=== PATIENT | female | born 1955 | race Caucasian/White ===

== ENCOUNTER 2018-04-30 14:02 | Emergency (ER) | payer OTHER ==
--- NOTE | 2018-04-30 14:18 | ED Physician Documentation ---
PD HPI UPPER EXT INJURY - Stated complaint Stated Complaint: LEFT HAND INJ - Chief complaint Chief Complaint: Ext Problem - History obtained from History obtained from: Patient - History of Present Illness Location: Left (Right-handed woman with up-to-date tetanus status tripped and fell on outstretched left hand and has some scrapes and gravel in the left palm and pain in the proximal hand and distal wrist. No other injuries.) Review of Systems Constitutional: reports: Reviewed and negative Throat: reports: Reviewed and negative Cardiac: reports: Reviewed and negative PD PAST MEDICAL HISTORY - Past Medical History Past Medical History: Yes Respiratory: Asthma - Past Surgical History Past Surgical History: No - Present Medications Home Medications: Ambulatory Orders Medication Instructions Recorded Confirmed Albuterol Sulf [Ventolin Hfa 04/30/18 Inhaler] Fluticasone/Vilanterol [Breo 04/30/18 Ellipta 200-25 Mcg INH] - Allergies Allergies/Adverse Reactions: Allergies Allergy/AdvReac Type Severity Reaction Status Date / Time No Known Drug Allergies Allergy Verified 04/30/18 14:05 - Social History Does the pt smoke?: No Smoking Status: Never smoker - Immunizations Immunizations are current?: Yes PD ED PE NORMAL - Vitals Vital signs reviewed: Yes - General General: Alert and oriented X 3, No acute distress - Neck Neck: Supple, no meningeal sign, No bony TTP - Extremities Extremities: Other (Left upper extremity: She is tender over the distal dorsal wrist without deformity, and also mild tenderness of the proximal thumb but not the snuffbox per se. She has a shallow abrasion over the thenar palmar side with a little bit of embedded gravel which was debrided with tweezers during exam I think I got it all out. Good range of motion of the fingers and wrist.) - Neuro Neuro: Alert and oriented X 3, Normal speech Results - Vitals Vitals: Vital Signs - 24 hr 04/30/18 14:03 Temperature 36.3 C L Heart Rate 65 Respiratory 20 Rate Blood Pressure 149/106 H O2 Saturation 99 Oxygen O2 Source Room air - Rads (name of study) X-rays of the left wrist and hand Radiology: EMP read contemporaneously (Normal) PD MEDICAL DECISION MAKING - Sepsis Event Vital Signs: Vital Signs - 24 hr 04/30/18 14:03 Temperature 36.3 C L Heart Rate 65 Respiratory 20 Rate Blood Pressure 149/106 H O2 Saturation 99 Oxygen O2 Source Room air Departure - Departure Disposition: 01 Home, Self Care Clinical Impression: Contusion of left hand Qualifiers: Encounter type: initial encounter Qualified Code(s): S60.222A - Contusion of left hand, initial encounter Left wrist sprain Qualifiers: Encounter type: initial encounter Qualified Code(s): S63.502A - Unspecified sprain of left wrist, initial encounter Abrasion of left hand Qualifiers: Encounter type: initial encounter Qualified Code(s): S60.512A - Abrasion of left hand, initial encounter Condition: Good Instructions: ED Abrasion, ED Sprain Wrist Comments: Your blood pressure was elevated today on check into the emergency department. This does not mean that you have hypertension, it is a common phenomenon to come to the emergency department and have elevated blood pressure. I recommend that you see your primary care physician within the week to have it rechecked when you are feeling better.
--- NOTE | 2018-04-30 14:53 | XRAY Report ---
Procedure Date: 04/30/2018 Accession Number: [id number] / [id number] Procedure: XR - Wrist 4 View LT CPT Code: FULL RESULT: EXAM: LEFT WRIST RADIOGRAPHY EXAM DATE: 04/30/2018 02:32 PM. CLINICAL HISTORY: Left wrist injury. COMPARISON: None. TECHNIQUE: 4 views. FINDINGS: Bones: Normal. No fractures or bone lesions. Joints: Normal. No subluxations. Soft Tissues: Normal. No soft tissue swelling. IMPRESSION: Normal wrist radiography. RADIA
--- NOTE | 2018-04-30 14:54 | XRAY Report ---
Procedure Date: 04/30/2018 Accession Number: [id number] / [id number] Procedure: XR - Hand 3 View LT CPT Code: FULL RESULT: EXAM: LEFT HAND RADIOGRAPHY EXAM DATE: 04/30/2018 02:32 PM. CLINICAL HISTORY: Left hand injury. COMPARISON: None. TECHNIQUE: 3 views. FINDINGS: Bones: Normal. No fractures or bone lesions. Joints: Normal. No subluxations. Soft Tissues: Normal. No soft tissue swelling. IMPRESSION: Normal hand radiography. RADIA
[2018-04-30 15:02] VITALS: BP 116/65
== END 2018-04-30 15:01 | disposition home or self-care (01) ==
LOC: ED 14:02
DX: S60.222A Contusion of left hand, initial encounter (principal); S63.502A Unspecified sprain of left wrist, initial encounter; S60.512A Abrasion of left hand, initial encounter; W01.0XXA Fall on same level from slipping, tripping and stumbling without subsequent striking against object, initial encounter; R03.0 Elevated blood-pressure reading, without diagnosis of hypertension
CPT/HCPCS: 99283

== ENCOUNTER 2018-09-01 14:27 | Outpatient (CLI) | payer OTHER ==
--- NOTE | 2018-09-02 08:43 | DEXA Report ---
Reason: INCREASED ABEL OF OSTEOPOROSIS,ABN FINDINGS ON DX Procedure Date: 09/01/2018 Accession Number: [id number] / [id number] Procedure: DEX - Dexa Spine and/or Hip CPT Code: FULL RESULT: EXAM: Dexa Spine and/or Hip DATE: 09/01/2018 2:57 PM CLINICAL HISTORY: INCREASED ABEL OF OSTEOPOROSIS,ABN FINDINGS ON DX TECHNIQUE: Dual energy x-ray absorptiometry (DXA) was performed on a Blue Source System. Regions measured are the AP Spine, femoral neck, and if needed forearm. COMPARISON: None. In accordance with the International Society for Clinical Densitometry (ISCD) guidelines, data from previous exams may be reanalyzed using current recommendations and techniques. This is done to allow a more accurate basis for comparison with the current study. FINDINGS: The data for the lumbar spine is as follows: BMD (g/cm/cm) T-SCORE Z-SCORE REGION L1 0.876 -2.1 -0.2 L2 0.961 -2.0 -0.1 L3 0.943 -2.1 -0.2 L4 0.908 -2.4 -0.5 TOTAL 0.922 -2.2 -0.3 NOTE: All evaluable vertebrae are used for classification The data for the hip is as follows: BMD (g/cm/cm) T-SCORE Z-SCORE REGION Neck 0.906 -1.0 0.7 TOTAL 0.873 -1.1 0.3 NOTE: The femoral neck or total proximal femur, whichever is lowest, is used for classification. IMPRESSION: THE WHO CLASSIFICATION BASED ON THE INTERNATIONAL REFERENCE STANDARD IS OSTEOPENIA. THE FRACTURE RISK IS INCREASED. RECOMMENDATION: Patients with diagnosis of osteoporosis or osteopenia should have regular bone mineral density assessment. For those eligible for Medicare, routine testing is allowed once every 2 years. Testing frequency can be increased for patients who have rapidly progressing disease or for those who are receiving medical therapy to restore bone mass. COMMENT: World Health Organization (WHO) definitions for osteoporosis and osteopenia: NORMAL BMD: T-score at -1.0 or higher, fracture risk is low OSTEOPENIA BMD: T-score between -1.0 and -2.5, fracture risk is increased. OSTEOPOROSIS BMD: T-score at -2.5 or lower, fracture risk is high. National Osteoporosis Foundation recommends: 1. Obtain adequate dietary calcium (at least 1200 mg per day) and vitamin D (400-800 international units per day). 2. Participate, as appropriate, in regular weightbearing and muscle-strengthening exercise. 3. Avoid tobacco use and reduce alcohol and caffeine intake. 4. For more detailed information see the website at www.NOF.org.
--- NOTE | 2018-09-02 13:32 | Ultrasound Report ---
Reason: INCREASED ABEL OF OSTEOPOROSIS,ABN FINDINGS ON DX Procedure Date: 09/01/2018 Accession Number: [id number] / [id number] Procedure: US - Head or Neck Soft Tissue CPT Code: FULL RESULT: EXAM: THYROID ULTRASOUND EXAM DATE: 09/01/2018 03:30 PM. CLINICAL HISTORY: Thyroid nodules. COMPARISON: None. TECHNIQUE: Real time sonographic imaging of the thyroid was performed by the manager card. Multiple tax representative static images were saved for review. FINDINGS: THYROID GLAND: Right Lobe: 4.9 x 1.6 x 1.9 cm, volume 7.5 cc. Markedly heterogeneous background echotexture with notably increased vascularity on color Doppler. Right Lobe Nodules: Heterogeneous 0.9 x 0.6 x 0.7 cm nodule. Left Lobe: 0.9 x 0.5 x 0.5 cm, volume 0.4 cc. The small thyroid remnant demonstrates the same heterogeneous echotexture and increased vascularity on color Doppler as the right thyroid lobe. Left Lobe Nodules: None. Isthmus: 0.1 cm AP. Isthmic Nodules: None. LYMPH NODES: No adenopathy demonstrated in the central or lateral compartment. OTHER: None. IMPRESSION: Increased heterogeneity and increased vascularity in the remaining thyroid gland, finding suggestive of thyroiditis. Management recommendations are based on 2015 [place] [employer] Management Guidelines for Adult Patients with Thyroid Nodules and Differentiated Thyroid Cancer. RADIA
== END 2018-09-01 14:28 | disposition home or self-care (01) ==
LOC: DI 14:27
PROVIDERS: ATTEND Naturopath
DX: M85.89 Other specified disorders of bone density and structure, multiple sites (principal); E04.2 Nontoxic multinodular goiter; R93.5 Abnormal findings on diagnostic imaging of other abdominal regions, including retroperitoneum; R63.6 Underweight
CPT/HCPCS: 76536; 77080

== ENCOUNTER 2018-10-05 07:54 | Outpatient (CLI) | payer OTHER ==
[2018-10-05] MEDS ORDERED: IOVERSOL 320 100 ML VIAL IVP ONE ×3 (08:09→09:44)
[2018-10-05 08:25] LABS: CALCIUM 9.1 mg/dL (8.5-10.3); CREATININE 0.7 mg/dL (0.4-1.0)
--- NOTE | 2018-10-05 17:46 | CT Report ---
Reason: ABN FINDINGS ON DX IMAGING OF [facility] Procedure Date: 10/05/2018 Accession Number: [id number] / [id number] Procedure: CT - Abdomen W/ CPT Code: FULL RESULT: EXAM: CT ABDOMEN, MULTIPHASE PANCREATIC CT EXAM DATE: 10/05/2018 09:21 AM. CLINICAL HISTORY: Abnormal findings on diagnostic imaging of abdomen regions. Follow rim calcified lesion in the pancreatic tail. COMPARISON: Report from chest CT of 06/22/2016 from [facility]. TECHNIQUE: Multiphase helical CT imaging was performed through the abdomen. IV contrast: OPTI 320 90mL Enteric contrast: No. Reconstruction: Coronal and sagittal. In accordance with CT protocol optimization, one or more of the following dose reduction techniques were utilized for this exam: automated exposure control, adjustment of mA and/or KV based on patient size, or use of iterative reconstructive technique. FINDINGS: Lung Bases: Unremarkable. Liver: Arterial phase image 84 series 3, posterior right liver is small. Hypervascular focus is likely a early filling hemangioma or perfusion abnormality of doubtful clinical significance. There is a small left liver cyst. No definitely suspicious masses. Gallbladder/Bile Ducts: Unremarkable. Spleen: Normal. Pancreas: No pancreatic solid mass or ductal dilatation seen. Previously described rim calcified lesion in the pancreatic tail corresponds to a thrombosed 11 mm splenic artery aneurysm. Image 44 series 3, 6 x 4 mm hypodense focus in the pancreatic tail could be a tiny cyst. Adrenal Glands: Normal. Kidneys: Normal. No masses or hydronephrosis. Peritoneal Cavity/Bowel: Normal. No free fluid, free air or adenopathy. No masses or acute inflammatory process. The appendix is well visualized and normal. 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 There is an additional patent 13 x 12 mm splenic artery aneurysm, image 33 series 3. No other aneurysm seen. Vessels otherwise unremarkable. Bones: No significant abnormality. Other: None. IMPRESSION: 1. 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 There is an additional 13 mm patent splenic artery aneurysm as well. 2. Pancreatic tail 6 x 4 mm cystic focus is distally but benign. ACR recommends one-year follow-up pancreatic MRI of such a lesion. RADIA
== END 2018-10-05 07:55 | disposition home or self-care (01) ==
LOC: DI 07:54
PROVIDERS: ATTEND Naturopath
DX: I72.8 Aneurysm of other specified arteries (principal); I74.8 Embolism and thrombosis of other arteries; K86.2 Cyst of pancreas; R93.5 Abnormal findings on diagnostic imaging of other abdominal regions, including retroperitoneum; Z01.812 Encounter for preprocedural laboratory examination
CPT/HCPCS: 36415; 74160; 80048; Q9967

== ENCOUNTER 2018-10-26 14:49 | Outpatient (CLI) | payer OTHER ==
[2018-10-26 15:31] LABS: CALCIUM 9.5 mg/dL (8.5-10.3); CREATININE 0.8 mg/dL (0.4-1.0)
[2018-10-27 17:02] LABS: THYROID STIMULATING HORMONE 1.33 uIU/mL (0.34-5.60)
[2018-10-27 17:07] LABS: FREE T4 (FREE THYROXINE) 1.08 ng/dL (0.58-1.64); TOTAL T3 0.87 ng/mL (0.87-1.78)
== END 2018-10-26 14:50 | disposition home or self-care (01) ==
LOC: LAB 14:49
PROVIDERS: ATTEND Naturopath
DX: Z01.812 Encounter for preprocedural laboratory examination (principal)
CPT/HCPCS: 36415; 80048; 84439; 84443; 84480; 84481

== ENCOUNTER 2019-02-23 13:12 | Outpatient (CLI) | payer OTHER ==
[2019-02-23 15:06] LABS: T4 (THYROXINE) 9.74 ug/dL (6.09-12.23)
[2019-02-23 15:09] LABS: THYROID STIMULATING HORMONE 0.14 uIU/mL (0.34-5.60)
[2019-02-23 15:11] LABS: FREE T4 (FREE THYROXINE) 1.06 ng/dL (0.58-1.64)
[2019-02-23 15:16] LABS: TOTAL T3 1.17 ng/mL (0.87-1.78)
== END 2019-02-23 13:13 | disposition home or self-care (01) ==
LOC: LAB 13:12
PROVIDERS: ATTEND Naturopath
DX: E03.9 Hypothyroidism, unspecified (principal); R63.4 Abnormal weight loss
CPT/HCPCS: 36415; 84436; 84439; 84443; 84480; 84481; 84482

== ENCOUNTER 2019-07-15 18:51 | Emergency (ER) | payer OTHER ==
--- NOTE | 2019-07-15 19:36 | XRAY Report ---
Reason: chest pain Procedure Date: 07/15/2019 Accession Number: [id number] / [id number] Procedure: XR - Chest 1 View X-Ray CPT Code: 58060 FULL RESULT: EXAM: CHEST RADIOGRAPHY EXAM DATE: 07/15/2019 07:27 PM. CLINICAL HISTORY: Chest pain. COMPARISON: None. TECHNIQUE: 1 view. FINDINGS: Lungs/Pleura: Mild biapical scarring. Central bronchial wall thickening is noted. No superimposed focal airspace consolidation. Rounded densities projecting at the lower lungs likely reflect nipple shadows. No evidence of pleural effusion or pneumothorax. Mediastinum: Within exam limitations, the cardiomediastinal contour is normal. Other: Right convex thoracic scoliosis noted. IMPRESSION: 1. Central bronchial wall thickening could reflect reactive airways or bronchitis. No evidence for pneumonia. 2. Normal heart size. RADIA
[2019-07-15 19:40] LABS: BASOPHILS % (AUTO) 0.6 %; EOSINOPHILS # (AUTO) 0.4 10^3/uL (0.0-0.7); HGB - HEMOGLOBIN 13.1 g/dL (12.0-16.0); LYMPHOCYTES # (AUTO) 1.7 10^3/uL (1.5-3.5); LYMPHOCYTES % (AUTO) 26.9 %; MEAN CORPUSCULAR HEMOGLOBIN 28.2 pg (27.0-31.0); MEAN CORPUSCULAR HGB CONC 32.4 g/dL (32.0-36.0); MEAN CORPUSCULAR VOLUME 86.9 fL (81.0-99.0); MEAN PLATELET VOLUME 10.1 fL (7.9-10.8); MONOCYTES # (AUTO) 0.5 10^3/uL (0.0-1.0); MONOCYTES % (AUTO) 7.5 %; NEUTROPHILS # (AUTO) 3.6 10^3/uL (1.5-6.6); NEUTROPHILS % (AUTO) 57.7 %; PLT - PLATELET COUNT 210 10^3/uL (130-450); RED BLOOD COUNT 4.65 10^6/uL (4.20-5.40); WHITE BLOOD COUNT 6.2 x10^3/uL (4.8-10.8)
--- NOTE | 2019-07-15 19:42 | ED Physician Documentation ---
PD HPI CHEST PAIN - Stated complaint Stated Complaint: CP - Chief complaint Chief Complaint: Cardiac - History obtained from History obtained from: Patient - History of Present Illness Timing - onset: Today (20 minutes prior to arrival) Timing - duration: Minutes (20) Timing - details: Abrupt onset Pain level now: 0 Quality: Pressure, Tightness Location: Substernal, Right shoulder/arm Improved by: Rest Recently seen: Not recently seen - Additional information Additional information: This is a 63-year-old woman is here with her complaints that she had chest pain while she was making dinner. She said it just suddenly felt like someone was standing on her chest she got short of breath and the pain was radiating into the right shoulder and she described as "intense". Lasted for maybe 20 minutes and then they got in the car to drive here she was, "out of it" and now the pain is completely gone at a 0 out of 10. She felt like her heart was racing racing when this happened she felt warm and flushed. She got a little dizzy and was nauseous felt, clammy no vomiting. She had a similar episode happened a few years ago and was seen at the [facility] they did a lot of tests and everything came out normal and she is had a negative cardiac stress test for 5 years ago. She denies any recent coughing, she had no numbness or tingling anywhere. Denies sore throat stuffy nose urinary symptoms or fever. She is not a smoker. She drinks a glass of wine or beer daily. She does have asthma but said that the shortness of breath did not feel like an asthma attack. Her mother is alive and has hypercholesterolemia and her father of cancer. She status post partial thyroidectomy due to a cyst and is on thyroid medications. Review of Systems Constitutional: denies: Fever Eyes: denies: Loss of vision Ears: denies: Ear pain Nose: denies: Rhinorrhea / runny nose, Congestion Throat: denies: Sore throat Cardiac: reports: Chest pain / pressure, Palpitations Respiratory: reports: Dyspnea. denies: Cough GI: reports: Nausea, Diarrhea (2 days ago). denies: Vomiting : reports: Dysuria Skin: reports: Rash Musculoskeletal: denies: Neck pain, Back pain Neurologic: denies: Focal weakness, Numbness, Syncope Endocrine: reports: Other (Partial thyroidectomy) PD PAST MEDICAL HISTORY - Past Medical History Cardiovascular: None Respiratory: Asthma Endocrine/Autoimmune: HyPOthyroidism - Past Surgical History Past Surgical History: No - Present Medications Home Medications: Ambulatory Orders Medication Instructions Recorded Confirmed Albuterol Sulf [Ventolin Hfa 04/30/18 Inhaler] Fluticasone/Vilanterol [Breo 04/30/18 Ellipta 200-25 Mcg INH] - Allergies Allergies/Adverse Reactions: Allergies Allergy/AdvReac Type Severity Reaction Status Date / Time No Known Drug Allergies Allergy Verified 07/15/19 19:00 - Social History Does the pt smoke?: No Smoking Status: Never smoker - Immunizations Immunizations are current?: Yes PD ED PE NORMAL - Vitals Vital signs reviewed: Yes - General General: Alert and oriented X 3, No acute distress, Well developed/nourished, Other (Thin 63-year-old woman who is not in any acute distress. She is very pleasant.) - HEENT HEENT: Atraumatic, PERRL, Moist mucous membranes, Pharynx benign - Neck Neck: No adenopathy, No JVD - Cardiac Cardiac: RRR, No murmur, Strong equal pulses - Respiratory Respiratory: No respiratory distress, Clear bilaterally - Abdomen Abdomen: Normal bowel sounds, Soft, No organomegaly - Derm Derm: Normal color, No rash - Neuro Neuro: Alert and oriented X 3, No motor deficit, No sensory deficit, Normal speech - Psych Psych: Normal mood, Normal affect Results - Vitals Vitals: Vital Signs - 24 hr 07/15/19 07/15/19 07/15/19 19:00 19:20 19:42 Temperature 36.8 C 36.8 C Heart Rate 77 77 69 Respiratory 18 18 12 Rate Blood Pressure 145/88 H 145/88 H 130/84 H O2 Saturation 100 100 99 07/15/19 07/15/19 07/15/19 20:30 21:00 21:30 Temperature 36.8 C Heart Rate 70 66 64 Respiratory 12 18 10 L Rate Blood Pressure 135/87 H 143/82 H 124/78 O2 Saturation 100 100 99 07/15/19 07/15/19 07/15/19 22:00 22:30 23:00 Temperature Heart Rate 65 63 62 Respiratory 14 12 10 L Rate Blood Pressure 124/78 122/81 H 119/76 O2 Saturation 98 96 98 Oxygen O2 Source Room air - EKG (time done) 1856 Rate: Rate (enter#) (73) Rhythm: NSR Intervals: Normal RI, Other (Narrow QRS) Ischemia: ST depression (V4 and V5), Hyperacute T waves (V3 and V4.) Compare to prior EKG: Old EKG unavailable 2248 Rate: Rate (enter#) (61) Rhythm: NSR Intervals: Other (Narrow QRS) Ischemia: Normal ST segments - Labs Labs: Laboratory Tests 07/15/19 07/15/19 07/15/19 19:35 19:35 19:35 WBC 6.2 RBC 4.65 Hgb 13.1 Hct 40.4 MCV 86.9 MCH 28.2 MCHC 32.4 RDW 13.0 Plt Count 210 MPV 10.1 Neut # (Auto) 3.6 Lymph # (Auto) 1.7 Camp # (Auto) 0.5 Eos # (Auto) 0.4 Baso # (Auto) 0.0 Absolute Nucleated RBC 0.00 Nucleated RBC % 0.0 Sodium 140 Potassium 3.2 L Chloride 103 Carbon Dioxide 28 Anion Gap 9.0 BUN 19 Creatinine 0.6 Estimated GFR (MDRD) 101 Glucose 105 H Calcium 9.1 Total Bilirubin 0.7 AST 21 ALT 24 Alkaline Phosphatase 33 L Troponin I High Sens < 2.3 L Total Protein 6.8 Albumin 4.1 Globulin 2.7 Albumin/Globulin Ratio 1.5 Lipase 50 07/15/19 22:45 WBC RBC Hgb Hct MCV MCH MCHC RDW Plt Count MPV Neut # (Auto) Lymph # (Auto) Camp # (Auto) Eos # (Auto) Baso # (Auto) Absolute Nucleated RBC Nucleated RBC % Sodium Potassium Chloride Carbon Dioxide Anion Gap BUN Creatinine Estimated GFR (MDRD) Glucose Calcium Total Bilirubin AST ALT Alkaline Phosphatase Troponin I High Sens 2.4 Total Protein Albumin Globulin Albumin/Globulin Ratio Lipase - Rads (name of study) CXR Radiology: See rad report (No acute infiltrate. No pneumothorax.) PD MEDICAL DECISION MAKING - ED course Complexity details: reviewed results, re-evaluated patient, d/w patient, d/w family ED course: Patient's initial troponin is normal. EKG has some minor changes on it but there is no old EKG available for comparison.Chest x-ray is clear. Awaiting 3- hour troponin. Her potassium was slightly low and she was given oral potassium. The repeat troponin was normal and EKG normal. Results were discussed with the patient I feel comfortable letting her go home tonight with outpatient follow-up and she states understanding. I did caution that should she develop the pain and it lasts longer than 15 minutes she should return for reevaluation and she states understanding. Departure - Departure Disposition: Home, Self Care Clinical Impression: Atypical chest pain Condition: Good Instructions: ED Chest Pain Atypical Unkn Cause Follow-Up: Nicole Schofield [place] [Primary Care Provider] - Comments: Home tonight and rest. Avoid fatty or fried foods or really spicy foods. If your symptoms recur and last longer than 15 minutes she should return for reevaluation. Follow-up with your primary care provider to discuss whether or not you should have outpatient stress testing performed.
[2019-07-15 19:57] LABS: ALBUMIN 4.1 g/dL (3.2-5.5); ALBUMIN/GLOBULIN RATIO 1.5 (1.0-2.2); BILIRUBIN,TOTAL 0.7 mg/dL (0.2-1.0); CALCIUM 9.1 mg/dL (8.5-10.3); CREATININE 0.6 mg/dL (0.4-1.0); TOTAL PROTEIN 6.8 g/dL (6.7-8.2)
[2019-07-15] MEDS ORDERED: ASPIRIN CHEW 81 MG TABLET PO STA (19:58)
[2019-07-15] MEDS ORDERED: POTASSIUM CHLORIDE 20 MEQ TABLET PO STA (20:51)
[2019-07-15 23:10] VITALS: BP 119/76
== END 2019-07-15 23:33 | disposition home or self-care (01) ==
LOC: ED 18:51
DX: R07.89 Other chest pain (principal); E87.6 Hypokalemia; R94.31 Abnormal electrocardiogram [ECG] [EKG]
CPT/HCPCS: 36415; 71045; 80053; 83690; 84484; 85025; 93005; 99284; A9270

== ENCOUNTER 2019-08-10 08:43 | Outpatient (CLI) | payer OTHER ==
[2019-08-10 09:13] LABS: BILIRUBIN,URINE NEGATIVE (NEGATIVE); GLUCOSE, URINE (UA) NEGATIVE (NEGATIVE); KETONES,URINE (UA) NEGATIVE (NEGATIVE); LEUKOCYTE ESTERASE, URINE NEGATIVE (NEGATIVE); NITRITE,URINE NEGATIVE (NEGATIVE); OCCULT BLOOD,URINE NEGATIVE (NEGATIVE); PH,URINE 7.5 PH (5.0-7.5); PROTEIN,URINE NEGATIVE (NEGATIVE); UROBILINOGEN,URINE 0.2 (NORMAL) E.U./dL (NORMAL)
[2019-08-10 09:14] LABS: BASOPHILS # (AUTO) 0.1 10^3/uL (0.0-0.1); BASOPHILS % (AUTO) 1.5 %; EOSINOPHILS # (AUTO) 0.5 10^3/uL (0.0-0.7); EOSINOPHILS % (AUTO) 11.6 %; HGB - HEMOGLOBIN 14.9 g/dL (12.0-16.0); LYMPHOCYTES # (AUTO) 1.2 10^3/uL (1.5-3.5); LYMPHOCYTES % (AUTO) 31.4 %; MEAN CORPUSCULAR HEMOGLOBIN 29.4 pg (27.0-31.0); MEAN CORPUSCULAR HGB CONC 33.3 g/dL (32.0-36.0); MEAN CORPUSCULAR VOLUME 88.5 fL (81.0-99.0); MEAN PLATELET VOLUME 10.4 fL (7.9-10.8); MONOCYTES # (AUTO) 0.4 10^3/uL (0.0-1.0); NEUTROPHILS # (AUTO) 1.8 10^3/uL (1.5-6.6); NEUTROPHILS % (AUTO) 46.2 %; PLT - PLATELET COUNT 221 10^3/uL (130-450); RED BLOOD COUNT 5.06 10^6/uL (4.20-5.40); RED CELL DISTRIBUTION WIDTH 13.1 % (12.0-15.0); WHITE BLOOD COUNT 3.9 x10^3/uL (4.8-10.8)
[2019-08-10 09:25] LABS: CLARITY,URINE HAZY (CLEAR)
[2019-08-10 09:28] LABS: ALBUMIN 4.2 g/dL (3.2-5.5); ALBUMIN/GLOBULIN RATIO 1.4 (1.0-2.2); ALKALINE PHOSPHATASE 36 IU/L (42-121); ALT ALANINE AMINOTRANSFERASE 20 IU/L (10-60); AST ASPARTATE AMINOTRANSFERASE 18 IU/L (10-42); BILIRUBIN,TOTAL 0.8 mg/dL (0.2-1.0); BUN - BLOOD UREA NITROGEN 15 mg/dL (6-20); CALCIUM 9.4 mg/dL (8.5-10.3); CARBON DIOXIDE - CO2 31 mmol/L (21-32); CHLORIDE 102 mmol/L (101-111); CHOL/HDL RATIO 3.3 (<4.4); CHOLESTEROL 274 mg/dL; CREATININE 0.7 mg/dL (0.4-1.0); GFR - MDRD 85 (>89); GLUCOSE 92 mg/dL (70-100); HDL CHOLESTEROL 83 mg/dL; LDL CHOLESTEROL,CALCULATED 175 mg/dL; LDL/HDL RATIO 2.1 (<4.4); SODIUM 141 mmol/L (135-145); TOTAL PROTEIN 7.2 g/dL (6.7-8.2); VLDL CHOLESTEROL 16 mg/dL
[2019-08-10 09:31] LABS: CRP HIGH SENSITIVITY < 0.7 mg/L
[2019-08-10 09:33] LABS: HB2 TOTAL 14.7 g/dL; HEMOGLOBIN A1C 0.57 g/dL; HEMOGLOBIN A1C % 5.7 % (4.6-6.2)
[2019-08-10 09:39] LABS: THYROID STIMULATING HORMONE 0.28 uIU/mL (0.34-5.60)
[2019-08-10 09:41] LABS: FREE T4 (FREE THYROXINE) 0.95 ng/dL (0.58-1.64)
[2019-08-10 09:46] LABS: FERRITIN 29.9 ng/mL (11.0-306.8); TOTAL T3 1.47 ng/mL (0.87-1.78)
[2019-08-10 10:05] LABS: AMORPHOUS SEDIMENT,UR Few /LPF; BACTERIA,URINE Few /HPF (None Seen); RBC,URINE 0-5 /HPF (0-5); SQUAMOUS EPITHELIAL CELL,UR RARE Squamous (<= Few)
[2019-08-11 09:36] LABS: HOMOCYSTEINE 11.6 umol/L (<10.4)
== END 2019-08-10 08:44 | disposition home or self-care (01) ==
LOC: LAB 08:43
PROVIDERS: ATTEND Naturopath
DX: Z00.00 Encounter for general adult medical examination without abnormal findings (principal); E55.9 Vitamin D deficiency, unspecified; D64.9 Anemia, unspecified; E03.9 Hypothyroidism, unspecified; R73.09 Other abnormal glucose; R53.83 Other fatigue; R63.4 Abnormal weight loss; M85.80 Other specified disorders of bone density and structure, unspecified site
CPT/HCPCS: 36415; 80053; 80061; 81001; 82306; 82626; 82728; 83036; 83090; 83721; 84439; 84443; 84480; 84481; 84482; 85025; 86141

== ENCOUNTER 2019-09-05 09:56 | Outpatient (CLI) | payer OTHER ==
--- NOTE | 2019-09-05 15:30 | DEXA Report ---
Reason: OSTEOPENIA Procedure Date: 09/05/2019 Accession Number: [id number] / [id number] Procedure: DEX - Dexa Spine and/or Hip CPT Code: Final Report FULL RESULT: EXAM: Dexa Spine and/or Hip DATE: 09/05/2019 10:31 AM CLINICAL HISTORY: OSTEOPENIA FOLLOW-UP TECHNIQUE: Dual energy x-ray absorptiometry (DXA) was performed on a Trooval System. Regions measured are the AP Spine, femoral neck, and if needed forearm. COMPARISON: 09/01/2018 In accordance with the International Society for Clinical Densitometry (ISCD) guidelines, data from previous exams may be reanalyzed using current recommendations and techniques. This is done to allow a more accurate basis for comparison with the current study. FINDINGS: The data for the lumbar spine is as follows: BMD (g/cm/cm) T-SCORE Z-SCORE REGION L1 0.871 -2.2 -0.2 L2 0.966 -1.9 0.0 L3 0.926 -2.3 -0.3 L4 0.929 -2.3 -0.3 TOTAL 0.924 -2.1 -0.2 NOTE: All evaluable vertebrae are used for classification The data for the hip is as follows: BMD (g/cm/cm) T-SCORE Z-SCORE REGION Neck 0.889 -1.1 0.6 TOTAL 0.859 -1.2 0.3 NOTE: The femoral neck or total proximal femur, whichever is lowest, is used for classification. DXA RESULTS SUMMARY: Spine SCAN DATE AGE BMD CHANGE VS CHANGE VS PREVIOUS PREVIOUS % 09[birth year]05[birth year]2019 [age] 0.924 0.002 0.2 09[birth year]01/2018 61.8 0.922 * Denotes significant change at the 95% confidence level. Denotes dissimilar scan types or analysis methods. DXA RESULTS SUMMARY: Hip SCAN DATE AGE BMD CHANGE VS CHANGE VS PREVIOUS PREVIOUS % [birth year]2019 62.8 0.859 -0.014 -1.6 [birth year]/2018 61.8 0.873 * Denotes significant change at the 95% confidence level. Denotes dissimilar scan types or analysis methods. IMPRESSION: THE WHO CLASSIFICATION BASED ON THE INTERNATIONAL REFERENCE STANDARD IS OSTEOPENIA, REFERENCE LUMBAR SPINE.. THE FRACTURE RISK IS INCREASED. RECOMMENDATION: Patients with diagnosis of osteoporosis or osteopenia should have regular bone mineral density assessment. For those eligible for Medicare, routine testing is allowed once every 2 years. Testing frequency can be increased for patients who have rapidly progressing disease or for those who are receiving medical therapy to restore bone mass. COMMENT: World Health Organization (WHO) definitions for osteoporosis and osteopenia: NORMAL BMD: T-score at -1.0 or higher, fracture risk is low OSTEOPENIA BMD: T-score between -1.0 and -2.5, fracture risk is increased. OSTEOPOROSIS BMD: T-score at -2.5 or lower, fracture risk is high. National Osteoporosis Foundation recommends: 1. Obtain adequate dietary calcium (at least 1200 mg per day) and vitamin D (400-800 international units per day). 2. Participate, as appropriate, in regular weightbearing and muscle-strengthening exercise. 3. Avoid tobacco use and reduce alcohol and caffeine intake. 4. For more detailed information see the website at www.NOF.org.
== END 2019-09-05 09:57 | disposition home or self-care (01) ==
LOC: DI 09:56
PROVIDERS: ATTEND Naturopath
DX: M85.89 Other specified disorders of bone density and structure, multiple sites (principal)
CPT/HCPCS: 77080

== ENCOUNTER 2019-09-26 07:56 | Outpatient (CLI) | payer OTHER ==
--- NOTE | 2019-09-27 12:00 | Mammography Report ---
Reason: ROUTINE MAMMO Procedure Date: 09/26/2019 Accession Number: [id number] / [id number] Procedure: KRISTA - Screening Mammo w/Patrick CPT Code: Final Report FULL RESULT: EXAM: Screening Mammo w/Patrick DATE: 09/26/2019 8:26 AM CLINICAL HISTORY: The patient is an asymptomatic 63-year-old female. No reported personal nor family history of breast cancer. TECHNIQUE: (B) - Bilateral CC and MLO views were obtained. COMPARISON: None PARENCHYMAL PATTERN: (D) - The breasts demonstrate heterogeneously dense fibroglandular parenchyma bilaterally. FINDINGS: There are no suspicious masses, calcifications, or areas of distortion. IMPRESSION: Negative examination. BI-RADS category 1. RECOMMENDATION: (ANNUAL) - Recommend routine annual screening mammography. BI-RADS CATEGORY: (1) - Negative. STANDARD QUALIFYING STATEMENTS: A negative or benign imaging report should not preclude biopsy if clinically suspicious findings are present. 3. Dense breasts may obscure an underlying neoplasm. This examination was reviewed with the aid of 3D breast imaging (tomosynthesis).
== END 2019-09-26 07:57 | disposition home or self-care (01) ==
LOC: DI 07:56
PROVIDERS: ATTEND Naturopath
DX: Z12.31 Encounter for screening mammogram for malignant neoplasm of breast (principal)
CPT/HCPCS: 77063; 77067

== ENCOUNTER 2019-09-27 11:52 | Emergency (ER) | payer OTHER ==
--- NOTE | 2019-09-27 13:03 | ED Physician Documentation ---
PD HPI URI - Stated complaint Stated Complaint: SOA,COUGH - Chief complaint Chief Complaint: Resp - History obtained from History obtained from: Patient - History of Present Illness Timing - onset: How many weeks ago (1) Timing duration: Weeks (1) Timing details: Gradual onset (she has had some cough and wheezing since , and had course of Prednisone and use of MDI with improvement. Had increase cough and wheezing now again the past week, with productive cough and trouble sleeping due to cough/dyspnea. Talked with PMD and referred to ER for evaluation.) Associated symptoms: Nasal congestion, Productive cough, Dyspnea. No: Fever, Chills, Hemoptysis, Chest pain Improves by: MDI/nebulizer Worsened by: Activity Similar symptoms before: Diagnosis (asthma) Review of Systems Constitutional: reports: Myalgias. denies: Fever, Chills Nose: reports: Congestion. denies: Rhinorrhea / runny nose Throat: denies: Sore throat Cardiac: denies: Chest pain / pressure, Palpitations, Pedal edema Respiratory: reports: Dyspnea, Cough, Wheezing GI: denies: Nausea, Vomiting, Diarrhea Skin: denies: Rash Musculoskeletal: denies: Back pain Neurologic: reports: Generalized weakness PD PAST MEDICAL HISTORY - Past Medical History Cardiovascular: None Respiratory: Asthma Endocrine/Autoimmune: HyPOthyroidism - Past Surgical History Past Surgical History: No - Present Medications Home Medications: Ambulatory Orders Medication Instructions Recorded Confirmed Albuterol Sulf [Ventolin Hfa 04/30/18 Inhaler] Fluticasone/Vilanterol [Breo 04/30/18 Ellipta 200-25 Mcg INH] Albuterol Sulfate [Albuterol 2 puffs IH QID #1 hfa.aer.ad 09/27/19 Sulfate Hfa] Benzonatate [Tessalon Perle] 100 mg PO TID PRN #25 capsule 09/27/19 Doxycycline Monohydrate 100 mg PO BID #14 tablet 09/27/19 dexAMETHasone [Decadron] 4 mg PO DAILY #7 tablet 09/27/19 - Allergies Allergies/Adverse Reactions: Allergies Allergy/AdvReac Type Severity Reaction Status Date / Time No Known Drug Allergies Allergy Verified 09/27/19 12:00 - Social History Does the pt smoke?: No Smoking Status: Never smoker - Immunizations Immunizations are current?: Yes PD ED PE NORMAL - Vitals Vital signs reviewed: Yes - General General: Alert and oriented X 3, No acute distress, Well developed/nourished - HEENT HEENT: Moist mucous membranes, Pharynx benign - Neck Neck: Supple, no meningeal sign, No adenopathy - Cardiac Cardiac: RRR, No murmur - Respiratory Respiratory: No: Clear bilaterally (no course sounds. Some diffuse exp wheezing. ) - Abdomen Abdomen: Soft, Non tender - Derm Derm: Normal color, Warm and dry - Extremities Extremities: No tenderness to palpate, No edema, No calf tenderness / cord - Neuro Neuro: Alert and oriented X 3, No motor deficit, Normal speech Results - Vitals Vitals: Vital Signs - 24 hr 09/27/19 09/27/19 09/27/19 12:00 13:43 14:20 Temperature 36.8 C Heart Rate 83 74 83 Respiratory 14 16 16 Rate Blood Pressure 132/77 H 129/80 O2 Saturation 96 98 Oxygen O2 Source Room air - Rads (name of study) chest xray Radiology: Prelim report reviewed (lower right mild infiltrate. ), See rad report PD MEDICAL DECISION MAKING - ED course Complexity details: reviewed results (small infiltrate right lower lobe c/w early pneumonia. ), considered differential, d/w patient Departure - Departure Disposition: 01 Home, Self Care Clinical Impression: Dyspnea Qualifiers: Dyspnea type: shortness of breath Qualified Code(s): R06.02 - Shortness of breath Pneumonia Qualifiers: Pneumonia type: due to unspecified organism Laterality: right Lung location: lower lobe of lung Qualified Code(s): J18.9 - Pneumonia, unspecified organism Condition: Stable Record reviewed to determine appropriate education?: Yes Instructions: ED Pneumonia Adult Follow-Up: Nicole Schofield ND [Primary Care Provider] - Prescriptions: Albuterol Sulfate [Albuterol Sulfate Hfa] 2 puffs IH QID #1 hfa.aer.ad Benzonatate [Tessalon Perle] 100 mg PO TID PRN #25 capsule PRN Reason: Cough dexAMETHasone [Decadron] 4 mg PO DAILY #7 tablet Doxycycline Monohydrate 100 mg PO BID #14 tablet Comments: Stay well-hydrated. Your chest x-ray does show a mild infiltrate in the right lower consistent with early pneumonia. This is more likely to be bacterial so we can treated with antibiotics as well as the inhaler 2 puffs 4 times a day for the next 7 to 10 days. Also use benzonatate if needed for cough. Decadron steroid will help with bronchial inflammation and therefore less coughing and better breathing as well. You can still use cough medicine as needed. Recheck if not improving well over the next several days to week. Discharge Date/Time: 09/27/19 14:22
[2019-09-27] MEDS ORDERED: BENZONATATE 100 MG CAPSULE PO STA (13:24)
[2019-09-27] MEDS ORDERED: ALBUTEROL NEB 2.5 MG/3 ML INH STA (13:24)
[2019-09-27] MEDS ORDERED: DEXAMETHASONE 10 MG/ML VIAL PO STA (13:24)
[2019-09-27] MEDS ORDERED: CHERRY SYRUP 10 ML UDC PO ONE (13:24)
[2019-09-27] MEDS ORDERED: DOXYCYCLINE 100 MG TABLET PO STA (13:25)
--- NOTE | 2019-09-27 13:57 | XRAY Report ---
Reason: dyspnea/ cough Procedure Date: 09/27/2019 Accession Number: [id number] / [id number] Procedure: XR - Chest 2 View X-Ray CPT Code: 84092 Final Report FULL RESULT: EXAM: CHEST RADIOGRAPHY EXAM DATE: 09/27/2019 01:36 PM. CLINICAL HISTORY: Dyspnea/ cough. COMPARISON: CHEST 1 VIEW 07/15/2019 7:12 PM. TECHNIQUE: 2 views. FINDINGS: Lungs/Pleura: New medial right basilar airspace process appearing since 07/15/2019. Chronic increased bilateral upper lobe markings. No pleural effusion. No pneumothorax. Normal volumes. Mediastinum: Heart and mediastinal contours are unremarkable. Other: Dextroscoliosis thoracolumbar junction. Prominent bilateral nipple shadows are present. IMPRESSION: New right lower lobe airspace process consistent with pneumonia appearing since 07/15/2019. Follow-up to complete radiographic clearing suggested. RADIA
[2019-09-27 14:22] VITALS: BP 129/80
== END 2019-09-27 14:22 | disposition home or self-care (01) ==
LOC: ED 11:52
DX: J18.9 Pneumonia, unspecified organism (principal); J45.909 Unspecified asthma, uncomplicated
CPT/HCPCS: 71046; 94640; 99283; 99284; A9270

== ENCOUNTER 2019-10-03 14:31 | Outpatient (CLI) | payer OTHER ==
[2019-10-03 15:05] LABS: BASOPHILS % (AUTO) 0.5 %; EOSINOPHILS % (AUTO) 0.2 %; HGB - HEMOGLOBIN 14.7 g/dL (12.0-16.0); LYMPHOCYTES % (AUTO) 9.6 %; MEAN CORPUSCULAR HEMOGLOBIN 29.6 pg (27.0-31.0); MEAN CORPUSCULAR HGB CONC 33.1 g/dL (32.0-36.0); MEAN CORPUSCULAR VOLUME 89.3 fL (81.0-99.0); MEAN PLATELET VOLUME 9.7 fL (7.9-10.8); MONOCYTES % (AUTO) 5.8 %; NEUTROPHILS % (AUTO) 77.1 %; PLT - PLATELET COUNT 476 10^3/uL (130-450); RED BLOOD COUNT 4.97 10^6/uL (4.20-5.40); RED CELL DISTRIBUTION WIDTH 13.3 % (12.0-15.0); WHITE BLOOD COUNT 13.3 x10^3/uL (4.8-10.8)
[2019-10-03 15:08] LABS: ABNORMAL LYMPHS % (MANUAL) 0 %
[2019-10-03 15:12] LABS: CALCIUM 9.1 mg/dL (8.5-10.3); CREATININE 0.7 mg/dL (0.4-1.0)
[2019-10-03 15:20] LABS: BAND NEUTROPHILS % (MANUAL) 7 %; DIFFERENTIAL COMMENT MANUAL DIFFERENTIAL; LYMPHOCYTES # (MANUAL) 1.7 10^3/uL (1.5-3.5); LYMPHOCYTES % (MANUAL) 13 %; METAMYELOCYTES % (MANUAL) 1 %; MONOCYTES # (MANUAL) 0.7 10^3/uL (0.0-1.0); MYELOCYTES % (MANUAL) 1 %; PLATELET ESTIMATE, MANUAL INCREASED (>450,000) (NORMAL); PLATELET MORPHOLOGY NORMAL APPEARANCE (NORMAL); RBC MORPHOLOGY (MULTIPLE) NORMAL APPEARANCE (NORMAL)
--- NOTE | 2019-10-03 16:29 | XRAY Report ---
Reason: CHEST PAIN, DYSPNEA, RLL PNEUMONIA Procedure Date: 10/03/2019 Accession Number: [id number] / [id number] Procedure: XR - Chest 2 View X-Ray CPT Code: 07534 Final Report FULL RESULT: EXAM: CHEST RADIOGRAPHY EXAM DATE: 10/03/2019 03:26 PM. CLINICAL HISTORY: Chest pain, dyspnea, right lower lobe pneumonia. COMPARISON: CHEST 2 VIEW 09/27/2019 1:31 PM. TECHNIQUE: 2 views. FINDINGS: Lungs/Pleura: No focal opacities evident. No pleural effusion. No pneumothorax. Normal volumes. Mediastinum: Heart and mediastinal contours are unremarkable. Other: None. IMPRESSION: Interval resolution of previously seen medial right lung base airspace opacities. RADIA
== END 2019-10-03 14:32 | disposition home or self-care (01) ==
LOC: LAB 14:31
PROVIDERS: ATTEND Naturopath
DX: J18.9 Pneumonia, unspecified organism (principal)
CPT/HCPCS: 36415; 71046; 80048; 85025

== ENCOUNTER 2019-10-31 13:03 | Outpatient (CLI) | payer OTHER ==
[2019-10-31] MEDS ORDERED: GADOBUTROL 7.5 MMOL/7.5 ML VIAL ONE (14:24)
[2019-10-31] MEDS ORDERED: GADOBUTROL 7.5 MMOL/7.5 ML VIAL IVP ONE (15:58)
--- NOTE | 2019-11-02 11:46 | MRI Report ---
Reason: PANCREATIC CYST Procedure Date: 10/31/2019 Accession Number: [id number] / [id number] Procedure: MRI - Abdomen W/WO CPT Code: Final Report FULL RESULT: EXAM: MR ABDOMEN WITH AND WITHOUT CONTRAST (MR PANCREAS AND MRCP) EXAM DATE: 10/31/2019 04:12 PM. CLINICAL HISTORY: Pancreatic cyst. COMPARISON: ABDOMEN W/ 10/05/2018 8:44 AM. TECHNIQUE: Multiplanar breath-hold T1, T2, and DWI sequences obtained through the pancreas and abdomen on an MR scanner. Dedicated 2D and 3D MRCP sequences obtained through the biliary and pancreatic ducts. Images obtained before and after administration of 5 mL GADAVIST intravenous contrast. Multiphase postcontrast sequences obtained through the pancreas. Mild to moderate patient motion artifact. FINDINGS: Lung Bases: Unremarkable. Liver: There are a couple of small simple liver cysts. Tiny 3 mm flash filling hemangioma within segment 4B near gallbladder. No suspicious liver mass. No fatty liver infiltration. Gallbladder: The gallbladder is partially distended and appears normal with no wall thickening or stone. Bile Ducts: No intrahepatic or extrahepatic duct dilatation. Pancreas: Stable cystic foci within the pancreas measuring 5 mm within the pancreatic tail on series 801 image 33 and 8 mm within pancreatic neck on image 26. Spleen: The spleen appears normal. 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 Diameter splenic artery prior to aneurysm is 4 mm. Stable thrombosed splenic arterial aneurysm along the anterior aspect of distal pancreatic tail. Kidneys: The kidneys appear normal with no mass or hydronephrosis. Adrenals: The adrenals appear normal. Bowel: The visualized segments of the small bowel and colon appear normal with no inflammation or obstruction. Retroperitoneum: The retroperitoneal structures appear normal with no mass or lymphadenopathy. Other: Convex left lumbar scoliosis. IMPRESSION: 1. Stable small simple appearing pancreatic cysts measuring 8 mm within the neck and 5 mm in the tail. Possible sidebranch IPMN. No main pancreatic ductal dilatation. [employer] guidelines suggest annual MRCP to establish 5-year stability, followed by q2 year follow-up to establish 9-year overall stability. 2. Small flash filling hepatic hemangioma. 3. 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 4. Stable thrombosed splenic arterial aneurysm. Bette et al, "Management of Incidental Pancreatic Cysts: A White Paper of the ACR Incidental Findings Committee," JACR 2017; 14: 911-921. RADIA
== END 2019-10-31 13:04 | disposition home or self-care (01) ==
LOC: DI 13:03
PROVIDERS: ATTEND Naturopath
DX: K86.2 Cyst of pancreas (principal); D18.03 Hemangioma of intra-abdominal structures; I72.8 Aneurysm of other specified arteries; E03.9 Hypothyroidism, unspecified
CPT/HCPCS: 36415; 74183; 84439; 84443; 84481; A9585

== ENCOUNTER 2019-10-31 13:36 | Outpatient (CLI) | payer OTHER ==
[2019-10-31 14:32] LABS: THYROID STIMULATING HORMONE 0.97 uIU/mL (0.34-5.60)
== END 2019-10-31 13:37 | disposition home or self-care (01) ==
LOC: LAB 13:36
PROVIDERS: ATTEND Naturopath
DX: E03.9 Hypothyroidism, unspecified (principal)
CPT/HCPCS: 36415; 84439; 84443; 84481

== ENCOUNTER 2020-07-22 13:03 | Emergency (ER) | payer OTHER ==
--- NOTE | 2020-07-22 13:45 | ED Physician Documentation ---
PD HPI LOWER EXT INJURY - Stated complaint Stated Complaint: RT KNEE INJ - Chief complaint Chief Complaint: Trauma Ext - History obtained from History obtained from: Patient, Family - History of Present Illness PD HPI LOW EXT INJURY LOCATION: Right, Knee Type of injury: Twist Where injury occurred: Home Timing - onset: Today Timing - duration: Hours Timing - details: Abrupt onset, Still present Improved by: Rest, Immobilization Worsened by: Moving, Palpating Associated symptoms: No: Weakness, Numbness, Tingling Contributing factors: No: Anticoagulated Similar symptoms before: Has not had sx before Recently seen: Not recently seen - Additional information Additional information: previously well 64 y/o female reports that earlier this year while hiking down a hill she sprained her knee and had medial pain for about 2 weeks. She felt that it resolved and today she was getting one of her goats and she turned and felt a "pop" in the knee and has pain medially. She has acute pain and is having a hard time bearing weight. Review of Systems Constitutional: denies: Fever Eyes: denies: Decreased vision Ears: denies: Ear pain Nose: denies: Congestion Throat: denies: Sore throat Cardiac: denies: Chest pain / pressure, Palpitations Respiratory: denies: Dyspnea GI: denies: Abdominal Pain, Nausea, Vomiting : denies: Dysuria, Frequency PD PAST MEDICAL HISTORY - Past Medical History Cardiovascular: None Respiratory: Asthma Endocrine/Autoimmune: HyPOthyroidism - Past Surgical History Past Surgical History: No - Present Medications Home Medications: Ambulatory Orders Medication Instructions Recorded Confirmed Albuterol Sulf [Ventolin Hfa 04/30/18 Inhaler] Fluticasone/Vilanterol [Breo 04/30/18 Ellipta 200-25 Mcg INH] Albuterol Sulfate [Albuterol 2 puffs IH QID #1 hfa.aer.ad 09/27/19 Sulfate Hfa] Benzonatate [Tessalon Perle] 100 mg PO TID PRN #25 capsule 09/27/19 Doxycycline Monohydrate 100 mg PO BID #14 tablet 09/27/19 dexAMETHasone [Decadron] 4 mg PO DAILY #7 tablet 09/27/19 - Allergies Allergies/Adverse Reactions: Allergies Allergy/AdvReac Type Severity Reaction Status Date / Time No Known Drug Allergies Allergy Verified 07/22/20 13:24 - Social History Does the pt smoke?: No Smoking Status: Never smoker - Immunizations Immunizations are current?: Yes PD ED PE NORMAL - Vitals Vital signs reviewed: Yes (hypertensive ) - General General: Alert and oriented X 3, No acute distress, Well developed/nourished - HEENT HEENT: Atraumatic, PERRL, EOMI - Respiratory Respiratory: No respiratory distress - Derm Derm: Normal color, Warm and dry, No rash - Extremities Extremities: No deformity, No edema, Other (There is tenderness along the medial joint line and with valgus forces applied. The joint space does not open and there is no palpable effusion. The ligaments are stable to testing. ) Results - Vitals Vitals: Vital Signs - 24 hr 07/22/20 13:21 Temperature 37.2 C Heart Rate 69 Respiratory 16 Rate Blood Pressure 139/75 H O2 Saturation 98 Oxygen O2 Source Room air - Rads (name of study) right knee Radiology: Prelim report reviewed, EMP read indepedently, See rad report PD MEDICAL DECISION MAKING - ED course Complexity details: reviewed results, re-evaluated patient, considered differential, d/w patient ED course: 64 y/o female with a sprain of the right knee appears to have medial collateral ligament injury and she is placed into an immobilizer and although this helps she is still not able to ambulate without crutches. She declines pain medication. Departure - Departure Disposition: 01 Home, Self Care Clinical Impression: Right knee sprain Qualifiers: Encounter type: initial encounter Involved ligament of knee: medial collateral ligament Qualified Code(s): S83.411A - Sprain of medial collateral ligament of right knee, initial encounter Condition: Stable Instructions: ED Sprain Knee Collateral Ligaments Follow-Up: Nicole Schofield ND [Primary Care Provider] - [facility] [Provider Group]
[2020-07-22 14:28] VITALS: BP 144/79
--- NOTE | 2020-07-22 15:00 | XRAY Report ---
PROCEDURE: Knee 4 View RT INDICATIONS: medial pain TECHNIQUE: 4 views of the right knee(s) were acquired. COMPARISON: None. FINDINGS: Bones: No acute fractures or dislocations. No suspicious bony lesions. Soft tissues: Small suprapatellar joint effusion. No suspicious soft tissue calcifications. IMPRESSION: Small suprapatellar joint effusion. No acute fracture or dislocation. If there is persistent clinical concern, consider repeat imaging and/or advanced imaging. Reviewed by: Marc Schneider MD on 07/22/2020 1:59 PM [facility] Approved by: Marc Schneider MD on 07/22/2020 1:59 PM [facility] Station ID: [id number]
== END 2020-07-22 14:38 | disposition home or self-care (01) ==
LOC: ED 13:03
DX: S83.411A Sprain of medial collateral ligament of right knee, initial encounter (principal); X50.1XXA Overexertion from prolonged static or awkward postures, initial encounter; Y93.89 Activity, other specified; Y92.009 Unspecified place in unspecified non-institutional (private) residence as the place of occurrence of the external cause
CPT/HCPCS: 99282; 99283

== ENCOUNTER 2020-08-29 09:21 | Outpatient (CLI) | payer OTHER ==
[2020-08-29 10:35] LABS: ALBUMIN 4.4 g/dL (3.2-5.5); ALBUMIN/GLOBULIN RATIO 1.5 (1.0-2.2); ALKALINE PHOSPHATASE 38 IU/L (42-121); ALT ALANINE AMINOTRANSFERASE 19 IU/L (10-60); AST ASPARTATE AMINOTRANSFERASE 16 IU/L (10-42); BILIRUBIN,TOTAL 0.7 mg/dL (0.2-1.0); BUN - BLOOD UREA NITROGEN 13 mg/dL (6-20); CALCIUM 9.5 mg/dL (8.5-10.3); CARBON DIOXIDE - CO2 28 mmol/L (21-32); CHLORIDE 102 mmol/L (101-111); CHOL/HDL RATIO 3.7 (<4.4); CHOLESTEROL 318 mg/dL; CREATININE 0.7 mg/dL (0.4-1.0); GLUCOSE 103 mg/dL (70-100); HDL CHOLESTEROL 85 mg/dL; LDL CHOLESTEROL,CALCULATED 222 mg/dL; LDL/HDL RATIO 2.6 (<4.4); SODIUM 140 mmol/L (135-145); TOTAL PROTEIN 7.3 g/dL (6.7-8.2); VLDL CHOLESTEROL 11 mg/dL
[2020-08-29 10:49] LABS: FREE T3 3.55 pg/mL (2.5-3.9); FREE T4 (FREE THYROXINE) 1.09 ng/dL (0.58-1.64)
[2020-08-29 10:54] LABS: FERRITIN 40.9 ng/mL (11.0-306.8)
[2020-08-29 13:49] LABS: HEMOGLOBIN A1c% 5.5 % (4.27-6.07)
[2020-08-30 10:46] LABS: HOMOCYSTEINE 10.6 umol/L (<10.4)
== END 2020-08-29 09:22 | disposition home or self-care (01) ==
LOC: LAB 09:21
PROVIDERS: ATTEND Naturopath
DX: R63.6 Underweight (principal); M85.80 Other specified disorders of bone density and structure, unspecified site; D70.9 Neutropenia, unspecified; R79.89 Other specified abnormal findings of blood chemistry; E78.00 Pure hypercholesterolemia, unspecified; E34.9 Endocrine disorder, unspecified; E03.9 Hypothyroidism, unspecified; E55.9 Vitamin D deficiency, unspecified
CPT/HCPCS: 36415; 80053; 80061; 82306; 82626; 82728; 83036; 83090; 83721; 84439; 84443; 84481

== ENCOUNTER 2020-09-05 11:54 | Outpatient (CLI) | payer OTHER ==
[2020-09-05 12:16] LABS: BASOPHILS # (AUTO) 0.1 10^3/uL (0.0-0.1); BASOPHILS % (AUTO) 1.2 %; EOSINOPHILS # (AUTO) 0.3 10^3/uL (0.0-0.7); EOSINOPHILS % (AUTO) 5.1 %; HGB - HEMOGLOBIN 15.6 g/dL (12.0-16.0); LYMPHOCYTES # (AUTO) 1.7 10^3/uL (1.5-3.5); LYMPHOCYTES % (AUTO) 30.6 %; MEAN CORPUSCULAR HEMOGLOBIN 29.6 pg (27.0-31.0); MEAN CORPUSCULAR HGB CONC 32.3 g/dL (32.0-36.0); MEAN CORPUSCULAR VOLUME 91.7 fL (81.0-99.0); MONOCYTES # (AUTO) 0.4 10^3/uL (0.0-1.0); MONOCYTES % (AUTO) 6.9 %; NEUTROPHILS # (AUTO) 3.2 10^3/uL (1.5-6.6); NEUTROPHILS % (AUTO) 55.8 %; PLT - PLATELET COUNT 218 10^3/uL (130-450); RED BLOOD COUNT 5.27 10^6/uL (4.20-5.40); RED CELL DISTRIBUTION WIDTH 13.1 % (12.0-15.0); WHITE BLOOD COUNT 5.7 x10^3/uL (4.8-10.8)
== END 2020-09-05 11:55 | disposition home or self-care (01) ==
LOC: LAB 11:54
PROVIDERS: ATTEND Family Medicine
DX: R63.6 Underweight (principal); M85.80 Other specified disorders of bone density and structure, unspecified site; D70.9 Neutropenia, unspecified; R79.89 Other specified abnormal findings of blood chemistry; E78.00 Pure hypercholesterolemia, unspecified; E34.9 Endocrine disorder, unspecified; E03.9 Hypothyroidism, unspecified
CPT/HCPCS: 85025

== ENCOUNTER 2021-12-27 11:48 | Outpatient (CLI) | payer MEDICARE, OTHER ==
--- NOTE | 2021-12-27 16:51 | XRAY Report ---
PROCEDURE: Chest 2 View X-Ray INDICATIONS: ASTHMA; COUGH TECHNIQUE: 2 view(s) of the chest. COMPARISON: 10/03/2019, 09/27/2019, 07/15/2019 FINDINGS: Surgical changes and devices: None. Lungs and pleura: No pleural effusions or pneumothorax. Lungs are clear. Mediastinum: Mediastinal contours are normal. Heart size is normal. Bones and chest wall: No suspicious bony abnormalities. Mild dextroconvex scoliotic curvature is see n. Age-appropriate degenerative changes are seen. Soft tissues appear unremarkable. IMPRESSION: Clear lungs, without infiltrates. Dextroconvex scoliosis noted. Reviewed by: Red Rees MD on 12/27/2021 3:50 PM [facility] Approved by: Red Rees MD on 12/27/2021 3:50 PM [facility] Station ID: [id number]
== END 2021-12-27 23:59 | disposition home or self-care (01) ==
LOC: DI.N 11:48
PROVIDERS: ATTEND Family Medicine
DX: J45.909 Unspecified asthma, uncomplicated (principal); R05.9 Cough, unspecified; M41.9 Scoliosis, unspecified

== ENCOUNTER 2022-03-04 12:22 | Outpatient (CLI) | payer MEDICARE ==
--- NOTE | 2022-03-05 07:57 | Mammography Report ---
BILATERAL DIGITAL SCREENING MAMMOGRAM 3D/2D: 03/04/2022 CLINICAL: Routine screening. Comparison is made to exam dated: 09/26/2019 mammogram - [facility]. There are scat tered fibroglandular elements in both breasts. No significant masses, calcifications, or other findings are seen in either breast. There has been no significant interval change. IMPRESSION: NEGATIVE There is no mammographic evidence of malignancy. A 1 year screening mammogram is recommended. This exam was interpreted at Station ID: [id number]. NOTE: For mammograms, a report in lay terms will be sent to the patient. Approximately 15% of breast malignancies will not be visualized mammographically. In the management of a palpable breast mass, a negative mammogram must not discourage biopsy of a clinically suspicious lesion. Electronically Signed By: Ralph Baxter M.D., jr/magda:03/04/2022 14:19:40 ACR BI-RADS Category 1: Negative 3341F PARENCHYMAL PATTERN: (A) - The breast(s) demonstrate(s) scattered fibroglandular densities. BI-RADS CATEGORY: (1) - 1 RECOMMENDATION: (ANNUAL) - Recommend routine annual screening mammography. [id number] 1 year screening LATERALITY: (B)
== END 2022-03-04 12:23 | disposition home or self-care (01) ==
LOC: DI 12:22
DX: Z12.31 Encounter for screening mammogram for malignant neoplasm of breast (principal)

== ENCOUNTER 2022-03-04 12:27 | Outpatient (CLI) | payer MEDICARE ==
[2022-03-04 12:45] LABS: BASOPHILS # (AUTO) 0.1 10^3/uL (0.0-0.1); BASOPHILS % (AUTO) 1.3 %; EOSINOPHILS # (AUTO) 0.3 10^3/uL (0.0-0.7); EOSINOPHILS % (AUTO) 7.5 %; HGB - HEMOGLOBIN 14.3 g/dL (12.0-16.0); LYMPHOCYTES # (AUTO) 1.6 10^3/uL (1.5-3.5); LYMPHOCYTES % (AUTO) 34.6 %; MEAN CORPUSCULAR HEMOGLOBIN 28.7 pg (27.0-31.0); MEAN CORPUSCULAR HGB CONC 32.5 g/dL (32.0-36.0); MEAN CORPUSCULAR VOLUME 88.2 fL (81.0-99.0); MEAN PLATELET VOLUME 10.3 fL (7.9-10.8); MONOCYTES # (AUTO) 0.4 10^3/uL (0.0-1.0); MONOCYTES % (AUTO) 9.5 %; NEUTROPHILS # (AUTO) 2.1 10^3/uL (1.5-6.6); NEUTROPHILS % (AUTO) 47.1 %; PLT - PLATELET COUNT 219 10^3/uL (130-450); RED BLOOD COUNT 4.99 10^6/uL (4.20-5.40); RED CELL DISTRIBUTION WIDTH 13.4 % (12.0-15.0); WHITE BLOOD COUNT 4.5 x10^3/uL (4.8-10.8)
[2022-03-04 13:07] LABS: ALBUMIN 4.3 g/dL (3.2-5.5); ALBUMIN/GLOBULIN RATIO 1.4 (1.0-2.2); ALKALINE PHOSPHATASE 39 IU/L (42-121); ALT ALANINE AMINOTRANSFERASE 20 IU/L (10-60); AST ASPARTATE AMINOTRANSFERASE 21 IU/L (10-42); BILIRUBIN,TOTAL 0.9 mg/dL (0.2-1.0); BUN - BLOOD UREA NITROGEN 14 mg/dL (6-20); CALCIUM 9.5 mg/dL (8.5-10.3); CARBON DIOXIDE - CO2 28 mmol/L (21-32); CHLORIDE 101 mmol/L (101-111); CHOLESTEROL 269 mg/dL; CREATININE 0.7 mg/dL (0.4-1.0); GFR - MDRD 84 (>89); GLUCOSE 83 mg/dL (70-100); HDL CHOLESTEROL 89 mg/dL; LDL CHOLESTEROL,CALCULATED 167 mg/dL; LDL/HDL RATIO 1.9 (<4.4); POTASSIUM 3.6 mmol/L (3.5-5.0); SODIUM 138 mmol/L (135-145); TOTAL PROTEIN 7.3 g/dL (6.7-8.2); TRIGLYCERIDES 65 mg/dL; VLDL CHOLESTEROL 13 mg/dL
[2022-03-04 13:18] LABS: THYROID STIMULATING HORMONE 1.57 uIU/mL (0.34-5.60)
== END 2022-03-04 12:28 | disposition home or self-care (01) ==
LOC: LAB 12:27
PROVIDERS: ATTEND Nurse Practitioner Family
DX: Z00.00 Encounter for general adult medical examination without abnormal findings (principal); Z13.220 Encounter for screening for lipoid disorders; E55.9 Vitamin D deficiency, unspecified; E03.9 Hypothyroidism, unspecified
CPT/HCPCS: 36415; 80053; 80061; 82306; 83721; 84443; 85025

== ENCOUNTER 2022-03-12 10:55 | Outpatient (CLI) | payer MEDICARE ==
--- NOTE | 2022-03-12 15:13 | DEXA Report ---
PROCEDURE: Dexa Spine and/or Hip INDICATIONS: POST MENOPAUSAL TECHNIQUE: Dual energy x-ray absorptiometry (DXA) was performed on a [employer] System. Regions measur ed are the AP Spine, femoral neck, and if needed forearm. COMPARISON: 09/05/2019 and 09/01/2018. FINDINGS: Lumbar Spine: Bone Mineral Density 0.914 g/cm/cm,T score -2.2, osteopenia Left Hip: Bone Mineral Density 0.85 g/cm/cm,T score -1.2, osteopenia Left Femoral Neck: Bone Mineral Density 0.812 g/cm/cm, T score -1.6, osteopenia (T score greater or equal to -1.0: NORMAL) (T score from -1.1 to -2.4: OSTEOPENIA) (T score less than or equal to -2.5 to: OSTEOPOROSIS) Impression: Osteopenia. Bone mineral density has decreased 0.7% in the interval since prior exam obtained 019. Patients with diagnosis of osteoporosis or osteopenia should have regular bone mineral density assess ment. For those eligible for Medicare, routine testing is allowed once every 2 years. Testing frequ ency can be increased for patients who have rapidly progressing disease or for those who are receivin g medical therapy to restore bone mass. Reviewed by: Vera Francis MD, PhD on 03/12/2022 3:12 PM PDT Approved by: Vera Francis MD, PhD on 03/12/2022 3:12 PM PDT Station ID: [id number]
== END 2022-03-12 10:56 | disposition home or self-care (01) ==
LOC: DI 10:55
PROVIDERS: ATTEND Nurse Practitioner Family
DX: Z78.0 Asymptomatic menopausal state (principal); M85.89 Other specified disorders of bone density and structure, multiple sites

== ENCOUNTER 2022-07-02 13:05 | Outpatient (CLI) | payer MEDICARE ==
--- NOTE | 2022-07-02 14:05 | SLEEP CARE CONSULTATION ---
Information from patient questionnaire entered by Uma Lam. I have reviewed and concur with the information entered by Uma Lam. This document represents the service I personally performed and the decisions made by me, Vika Schwab ARNP. History of Present Illness Service Date and Time: 07/02/2022 1305 Reason for Visit: New patient (Initial ) Chief Complaint: reports: Snoring, Observed pauses in breathing, Other (EXCESSIVE DAYTME YAWNING) Date of Onset: all her life, snoring Usual bedtime: 12PAM -1AM Time it takes to fall asleep: LESS THAN 5MIN Snores at night: Yes Observed to quit breathing while asleep: Yes (LONG PAUSE AND JERK) Sleeps alone due to snoring: Yes Number of times waking at night: 1-2 Reasons for waking at night: reports: Choking, Gasping for air, Bathroom Toss, Turn, or Twitch while sleeping: No Recalls having dreams: No Usually gets out of bed at: 7-8 AM Feels refreshed in the morning: Yes (once she is "up and erect") Morning headache: Yes (RIGHT WHEN I GET UP; 4-5 days a week) Sleepy or fatigued during the day: Yes Ever fallen asleep while driving: Yes (drowsy driving, no accidents) Takes day naps: No Dreams during day naps: Yes (SOMETIMES) Prior sleep studies: No Additional HPI information: I had the pleasure of seeing MIRELA LOPEZ today regarding the possibility of her having a sleep disorder. Her current complaints are observed pauses in breathing, snoring and excessive daytime yawning. She states that she has snoring issues all her life. She has sinus allergy issues that limited her ability to breath through her nose until she had a turbinate reduction surgery. She can now breathe through her nose. Her snoring improved after this surgery but her snoring returned. She states she is tired during the day. He tells her her snoring is worsening and that she has pauses in breathing in sleep with gasping sounds. She has had issues with drowsy driving since her college days. She is a back sleeper. - Parasomnia Symptoms Ever been unable to move upon waking from sleep: No Walks in sleep: No Talks in sleep: No Ever acted out dreams in sleep: No Ever felt weak in the knees when startled or emotional: No Bothered by creepy, crawly, restless sensations in legs: No Problems with memory or concentration: Yes (memory; not concentration) Subjective Initial Sherrill Sleepiness Scale score: 15 (07-02-2022) Past Medical History Past Medical History: reports: Hypothyroidism (cyst with 1/2 thyroid removed when 51 yrs old), Asthma, Other (racing heart rate for last 3-4 years; checked by PCP, did not find anything) Social History The patient's occupation is a RE. Patient is and lives in [place]. Have you smoked in the past 12 months: No Alcohol use: Yes Alcohol amount and frequency: 1 GLASS 5-6 NIGHTS A WEEK Caffeine use: Yes Caffeine amount and frequency: 1-2 LATTES DAILY Family History Family history of sleep disordered breathing: No Allergies and Home Medications Known drug allergies: No Drug allergies reviewed: Yes (NKDA) Home medication list reviewed: Yes Allergy and home medication list: Medications: Montelukast Qvar Levothyroxine Review of Systems Weight loss over past 5 years: 5 lbs Cardiovascular: reports: other (ELEVATD HEART RATE) Respiratory: reports: shortness of breath, other (frequent pneumonia) Ear/Nose/Throat: reports: wisdom teeth removed, other (TURBIN REDUCTION) Endocrine: reports: other (.5 THYROIDECTOMY) Physical Exam Vital signs obtained and entered by: Uma Dick MA Blood Pressure: 130/80 (LEFT ARM) Cuff size: regular Heart Rate: 52 O2 Saturation: 100 Height: 5 ft 6.5 in Weight: 108 lb Body Mass Index: 17.2 BMI Classification: Underweight Neck circumference: 12 Mouth and throat: narrow oropharynx Soft palate: long Hard palate: normal Uvula: normal Uvula visualization: 25% Mallampati Class III Tongue: normal in size Tonsils: small Neck: normal w/o lymphadenopathy or thyromegaly Heart: regular rate and rhythm Lungs: clear bilaterally Impression and Plan 1. Suspected Obstructive Sleep Apnea-Hypopnea Syndrome, as suggested by a history of loud and irregular snoring, observed cessation of breath while asleep, gasping or choking in sleep, morning headache, cognitive impairment, and excessive daytime sleepiness. Narrow oropharynx and obesity are common predisposing factors for obstructive sleep apnea-hypopnea syndrome. I recommend proceeding to polysomnography to confirm the diagnosis and to assess severity. If the patient has significant sleep disordered breathing, a manual CPAP titration study will also be performed to find the optimal treatment pressure. I informed the patient of what the sleep studies involve and after some discussion, obtained agreement to proceed. The pathophysiology of obstructive sleep apnea-hypopnea syndrome was discussed with the patient and health risks of cardiovascular and cerebrovascular disease if not treated. Risks of drowsy driving discussed in detail and patient advised to avoid long distance driving and to stock puller at the first sign of drowsiness. Patient agreed to plan. * Schedule polysomnography * Avoid long distance driving or driving when feeling sleepy. * Avoid alcohol, sedative and muscle relaxant around bedtime. * Attempt to lose weight. * Review instructions provided by trained office staff on how to prepare for the sleep study. * Return for follow-up after sleep study completed. Visit Type: In Office Time Spent with Patient (minutes): 30 Provider Statement: I spent 100% of the Face to Face Visit with the patient with greater than 50% spent counseling the patient and coordination of care.
[2022-07-02 14:06] VITALS: BP 130/80
== END 2022-07-02 13:06 | disposition home or self-care (01) ==
LOC: SC 13:05
PROVIDERS: ATTEND Nurse Practitioner Family
DX: G47.10 Hypersomnia, unspecified (principal); R53.83 Other fatigue; R51.9 Headache, unspecified; G47.8 Other sleep disorders; R06.83 Snoring; R06.81 Apnea, not elsewhere classified
CPT/HCPCS: 99203; G0463; 99212

== ENCOUNTER 2022-08-18 14:32 | Outpatient (CLI) | payer MEDICARE | END 2022-08-18 14:33 | disposition home or self-care (01) | LOC: SC 14:32 | PROVIDERS: ATTEND Nurse Practitioner Family | DX: G47.33 Obstructive sleep apnea (adult) (pediatric) (principal); R09.02 Hypoxemia | CPT/HCPCS: G0399 ×2; 95806 ==

== ENCOUNTER 2022-09-02 13:34 | Outpatient (CLI) | payer MEDICARE ==
--- NOTE | 2022-09-02 14:11 | SLEEP CARE CONSULTATION ---
Information from patient questionnaire entered by Uma Condon. I have reviewed and concur with the information entered by Uma Condon. This document represents the service I personally performed and the decisions made by , Vika Schwab ARNP. History of Present Illness Service Date and Time: 09/02/2022 1334 Initial [place] Sleepiness Scale score: 15 (07-02-2022) Current [place] Sleepiness Scale score: 10 (09/02/2022) Additional HPI information: MIRELA LOPEZ returns for follow up and results of the recently performed home sleep study. I explained the pathophysiology behind obstructive sleep apnea. We then spent quite a bit of time discussing different treatment options. For mild obstructive sleep apnea, surgery and oral appliance are alternatives to nasal CPAP therapy but in moderate or severe cases, nasal CPAP is the most effective and reliable treatment. Patient counseled not drink alcohol less than 4 hours before bedtime as it can increase snoring and apnea. Patient was cautioned about risks of drowsy driving until sleepiness symptoms resolve. Patient denies drowsy driving. Sleep Study - Results Type of Sleep Study: Home sleep study (COMPLETED 08/18/22) Prior sleep studies: No Polysomnography/Home Sleep Study results: Physician Impression: The quality of the study is good. The length of the study is adequate (> 240 minutes). Please also see the tabulated and graphic data. 1. Obstructive Sleep Apnea-Hypopnea (ICD-10 G47.33), mild, with an AHI of 11.2/hr and april SaO2 of 87%. During the study, the patient had 79 apneas (79 obstructive, 0 central, 0 mixed) and 5 hypopneas. The longest episode lasted 78.5 seconds. The respiratory events occurred more frequently during supine sleep (supine AHI was 11.3 and non-supine, 6.74). 2. Hypoxemia (ICD-10 R09.02), mild, with the lowest oxygen saturation of 87 % and 1.4 minutes with SaO2 under 90%. Baseline oxygen saturation was normal (Average oxygen saturation was 94%). Allergies and Home Medications Drug allergies reviewed: Yes (NKDA) Home medication list reviewed: Yes (no changes) Review of Systems Review of systems same as previous: Yes (no changes) Physical Exam Vital signs obtained and entered by: UMA Dick MA Blood Pressure: 110/64 (LEFT ARM) Cuff size: regular Heart Rate: 74 O2 Saturation: 97 Height: 5 ft 6.5 in Weight: 113 lb 3.2 oz Body Mass Index: 17.9 BMI Classification: Underweight Impression and Plan 1. Obstructive Sleep Apnea-Hypopnea Syndrome, mild, with lowest oxygen saturation of 87%. Obviously this is the cause of the patients symptoms of unrefreshed sleep, and excessive daytime sleepiness. Positive pressure therapy could benefit asthma. I reviewed choices of oral mandibular appliance or CPAP therapy for her sleep apnea. We also touched on surgery, ENT consultation. She voiced understanding. She will call back with her decision on which therapy she would like to pursue. * Patient to call with decision on therapy * Avoid alcohol consumption near bedtime. * Avoid supine sleep * The patient is again cautioned about driving until sleepiness completely resolves. * Return one month after CPAP or oral appliance obtained. I will assess response to therapy and compliance at that time. Visit Type: In Office Time Spent with Patient (minutes): 21 Provider Statement: I spent 100% of the Face to Face Visit with the patient with greater than 50% spent counseling the patient and coordination of care.
[2022-09-02 14:12] VITALS: BP 110/64
== END 2022-09-02 13:35 | disposition home or self-care (01) ==
LOC: SC 13:34
PROVIDERS: ATTEND Nurse Practitioner Family
DX: G47.33 Obstructive sleep apnea (adult) (pediatric) (principal)
CPT/HCPCS: 99213; G0463; 99212

== ENCOUNTER 2022-11-06 13:41 | Outpatient (CLI) | payer MEDICARE ==
[2022-11-06 14:15] VITALS: BP 136/72
--- NOTE | 2022-11-06 14:15 | SLEEP CARE CONSULTATION ---
Information from patient questionnaire entered by Mendy Condon. I have reviewed and concur with the information entered by Mendy Condon. This document represents the service I personally performed and the decisions made by , Vika Schwab ARNP. History of Present Illness Service Date and Time: 11/06/2022 1341 Previous diagnosis: Mild, Obstructive Sleep Apnea-Hypopnea Syndrome AHI: 11.2 (in 2021) Reason for follow up: first compliance Equipment type: CPAP (RESMED Airsense 11, s/u 08/2022) Equipment obtained from: [employer] (getting supplies) Mask style: Nasal Mask brand: Resmed (Airfit [id number]) Backup mask available: No (will keep old mask when replaced) Last cushion change: 1 month Prior sleep studies: No Type of Sleep Study: Home sleep study (COMPLETED 08/18/22) HPI additional information: MIRELA LOPEZ was diagnosed to have mild, AHI 11.2, obstructive sleep apnea- hypopnea syndrome and returned today for CPAP therapy first compliance follow- up. Sleep Study - Results Type of Sleep Study: Home sleep study (COMPLETED 08/18/22) Prior sleep studies: No CPAP Compliance Data - Data Reviewed with Patient Average duration of nightly device use: 6 HRS 27 MIN Compliance rate %: 77 (10/06/22-11/04/22; days used) Current pressure setting (cmH2O): 7-10 (median 9.3, avg 9.8, max 10.0) Average residual AHI: 0.6 Central apnea: 0.1 Obstructive apnea: 0.0 Hypopnea: 0.4 Subjective Patient concerns: denies: aerophagia, mask discomfort, air blowing in eyes, mask leak noise, condensation in mask/hose, nasal congestion, dry mouth, nose, throat, epistaxis Observed to snore while using device: Yes (jaw drops occasionally, air noise per ) Current pressure setting perceived as: comfortable On therapy, patient: reports: awakening more refreshed, being more awake and alert during the day. denies: drowsiness while driving Initial [place] Sleepiness Scale score: 15 (07-02-2022) Current [place] Sleepiness Scale score: 9 Allergies and Home Medications Drug allergies reviewed: Yes (NKDA) Home medication list reviewed: Yes (no changes) Review of Systems Review of systems same as previous: Yes (no changes) Physical Exam Vital signs obtained and entered by: MENDY Dick MA Blood Pressure: 136/72 Heart Rate: 78 O2 Saturation: 96 Height: 5 ft 6.5 in Weight: 118 lb Weight change since last visit: 5 lb gain Body Mass Index: 18.7 BMI Classification: Normal Impression and Plan 1. Obstructive Sleep Apnea-Hypopnea Syndrome, mild, with good treatment compliance and good apnea control. On CPAP therapy, the patient has better sleep quality and is more rested overall. Patient has been doing well with a nasal cushion, Resmed Airfit N30i, and the pressure adjusted to 7-10 cmH2O. She sometimes will oral vent and wake up but not very much. She has significant improvement of her sleep apnea and is comfortable with current pressure settings. Patient's apnea severity and rationale for treatment to reduce apnea, improve sleep quality and reduce cardiovascular and cerebrovascular events was reviewed. I also reviewed the benefit of consistent device use of CPAP for asthma. * Continue auto CPAP pressure at 7-10 cmH2O * Notify me if snoring with mask or feeling that the pressure is too much or too little * Call this office if any problems using CPAP * Return for follow up in 3 months, or sooner if concerns arise Counseling Topics: Spare mask Visit Type: In Office Time Spent with Patient (minutes): 22 Provider Statement: I spent 100% of the Face to Face Visit with the patient with greater than 50% spent counseling the patient and coordination of care.
== END 2022-11-06 13:42 | disposition home or self-care (01) ==
LOC: SC 13:41
PROVIDERS: ATTEND Nurse Practitioner Family
DX: G47.33 Obstructive sleep apnea (adult) (pediatric) (principal)
CPT/HCPCS: 99213; G0463; 99212

== ENCOUNTER 2023-02-05 14:07 | Outpatient (CLI) | payer MEDICARE ==
--- NOTE | 2023-02-05 14:31 | Sleep Patient Instructions ---
Sleep Center Visit Summary - Patient Visit Information Reason for Visit: 3 month follow up for CPAP therapy - Patient Instructions Additional Instructions: You were here for follow up of CPAP therapy. You will be continued on CPAP therapy with pressure at 7-10 cmH2O. You should follow up with sleep care in 6 months. You may contact us sooner for any questions or concerns. - Clinic Information Contact: [facility] [address] [place] [address] [email or web address] T: [phone]
[2023-02-05 14:34] VITALS: BP 120/60
--- NOTE | 2023-02-05 14:34 | SLEEP CARE CONSULTATION ---
Information from patient questionnaire entered by Mendy Condon. I have reviewed and concur with the information entered by Mendy Condon. This document represents the service I personally performed and the decisions made by , Vkia Schwab ARNP. History of Present Illness Service Date and Time: 02/05/2023 1407 Previous diagnosis: Mild, Obstructive Sleep Apnea-Hypopnea Syndrome AHI: 11.2 (in 2021) Reason for follow up: three month (F/U) Equipment type: CPAP (RESMED Airsense 11, s/u 08/2022) Equipment obtained from: [employer] (getting supplies) Mask style: Nasal Backup mask available: Yes (old mask) Last cushion change: 3 weeks Prior sleep studies: No Type of Sleep Study: Home sleep study (COMPLETED 08/18/22) HPI additional information: MIRELA LOPEZ was diagnosed to have mild, AHI 11.2, obstructive sleep apnea- hypopnea syndrome and returned today for CPAP therapy three month follow-up. Sleep Study - Results Type of Sleep Study: Home sleep study (COMPLETED 08/18/22) Prior sleep studies: No CPAP Compliance Data - Data Reviewed with Patient Average duration of nightly device use: 5 hours 54 minutes Compliance rate %: 64 (66/90 days used; 73% in last 30 days) Current pressure setting (cmH2O): 7-10 Average residual AHI: 0.8 Central apnea: 0.3 Obstructive apnea: 0 Hypopnea: 0.5 Average large leak: 1.2 L/min Subjective Missed days of use due to: reports: travel Patient concerns: denies: aerophagia, mask discomfort, air blowing in eyes, mask leak noise, condensation in mask/hose, nasal congestion, dry mouth, nose, throat, epistaxis Observed to snore while using device: No Current pressure setting perceived as: comfortable On therapy, patient: reports: other (has not noticed difference in restfulness). denies: drowsiness while driving Initial [place] Sleepiness Scale score: 15 (07-02-2022) Current [place] Sleepiness Scale score: 11 (02/05/23) Allergies and Home Medications Known drug allergies: No Drug allergies reviewed: Yes Home medication list reviewed: Yes (no changes) Allergy and home medication list: Allergies No Known Drug Allergies Allergy (Verified 02/04/23 14:34) Review of Systems Review of systems same as previous: Yes (no changes) Physical Exam Vital signs obtained and entered by: MENDY Dick MA Blood Pressure: 120/60 (LEFT ARM) Cuff size: regular Heart Rate: 75 O2 Saturation: 98 Height: 5 ft 6.5 in Weight: 115 lb 12.8 oz Body Mass Index: 18.3 BMI Classification: Underweight Impression and Plan 1. Obstructive Sleep Apnea-Hypopnea Syndrome, mild, with good treatment compliance and good apnea control. On CPAP therapy, the patient states she is not snoring but she does not feel an great improvement on sleep and restfulness. Patient has significant improvement of their sleep apnea and is satisfied with current CPAP therapy. Patient denies problems with oral dryness, nasal congestion, epistaxis, skin irritation or aerophagia. Patient's apnea severity and rationale for treatment to reduce apnea, improve sleep quality and reduce cardiovascular and cerebrovascular events was reviewed. I also reviewed the benefit of consistent device use of CPAP for asthma. * Continue auto CPAP pressure at 7-10 cmH2O * Notify me if snoring with mask or feeling that the pressure is too much or too little * Call this office if any problems using CPAP * Return for follow up in 6 months, or sooner if concerns arise Counseling Topics: Spare mask Follow up with Sleep Care in: 6 months Visit Type: In Office Time Spent with Patient (minutes): 21 Provider Statement: I spent 100% of the Face to Face Visit with the patient with greater than 50% spent counseling the patient and coordination of care.
== END 2023-02-05 14:08 | disposition home or self-care (01) ==
LOC: SC 14:07
PROVIDERS: ATTEND Nurse Practitioner Family
DX: G47.33 Obstructive sleep apnea (adult) (pediatric) (principal)
CPT/HCPCS: 99213; G0463; 99212

== ENCOUNTER 2023-07-26 08:02 | Outpatient (CLI) | payer MEDICARE ==
[2023-07-26 08:24] LABS: BASOPHILS # (AUTO) 0.1 10^3/uL (0.0-0.1); BASOPHILS % (AUTO) 1.5 %; EOSINOPHILS # (AUTO) 0.4 10^3/uL (0.0-0.7); EOSINOPHILS % (AUTO) 10.6 %; HCT - HEMATOCRIT 44.6 % (37.0-47.0); HGB - HEMOGLOBIN 14.8 g/dL (12.0-16.0); LYMPHOCYTES # (AUTO) 1.4 10^3/uL (1.5-3.5); LYMPHOCYTES % (AUTO) 35.4 %; MEAN CORPUSCULAR HEMOGLOBIN 29.5 pg (27.0-31.0); MEAN CORPUSCULAR HGB CONC 33.2 g/dL (32.0-36.0); MEAN PLATELET VOLUME 10.1 fL (7.9-10.8); MONOCYTES # (AUTO) 0.4 10^3/uL (0.0-1.0); MONOCYTES % (AUTO) 10.1 %; NEUTROPHILS # (AUTO) 1.7 10^3/uL (1.5-6.6); NEUTROPHILS % (AUTO) 41.9 %; PLT - PLATELET COUNT 212 10^3/uL (130-450); RED BLOOD COUNT 5.01 10^6/uL (4.20-5.40); RED CELL DISTRIBUTION WIDTH 13.2 % (12.0-15.0)
[2023-07-26 08:39] LABS: ALBUMIN 4.4 g/dL (3.2-5.5); ALBUMIN/GLOBULIN RATIO 1.6 (1.0-2.2); ALKALINE PHOSPHATASE 38 IU/L (42-121); ALT ALANINE AMINOTRANSFERASE 16 IU/L (10-60); AST ASPARTATE AMINOTRANSFERASE 17 IU/L (10-42); BILIRUBIN,TOTAL 0.4 mg/dL (0.2-1.0); BUN - BLOOD UREA NITROGEN 20 mg/dL (6-20); CALCIUM 9.5 mg/dL (8.5-10.3); CARBON DIOXIDE - CO2 32 mmol/L (21-32); CHLORIDE 103 mmol/L (101-111); CHOL/HDL RATIO 3.4 (<4.4); CHOLESTEROL 258 mg/dL; CREATININE 0.7 mg/dL (0.6-1.3); GFR - MDRD 84 (>89); GLUCOSE 102 mg/dL (74-104); HDL CHOLESTEROL 76 mg/dL; LDL CHOLESTEROL,CALCULATED 168 mg/dL; LDL/HDL RATIO 2.2 (<4.4); POTASSIUM 4.2 mmol/L (3.5-4.5); SODIUM 138 mmol/L (135-145); TOTAL PROTEIN 7.1 g/dL (6.4-8.9); TRIGLYCERIDES 71 mg/dL (48-352); VLDL CHOLESTEROL 14 mg/dL
[2023-07-26 08:52] LABS: THYROID STIMULATING HORMONE 5.96 uIU/mL (0.34-5.60)
== END 2023-07-26 08:03 | disposition home or self-care (01) ==
LOC: LAB 08:02
PROVIDERS: ATTEND Nurse Practitioner Family
DX: K86.9 Disease of pancreas, unspecified (principal); Z79.899 Other long term (current) drug therapy; R53.83 Other fatigue; Z13.220 Encounter for screening for lipoid disorders; E03.9 Hypothyroidism, unspecified
CPT/HCPCS: 36415; 80053; 80061; 83721; 84439; 84443; 85025

== ENCOUNTER 2023-08-10 10:23 | Outpatient (CLI) | payer MEDICARE ==
--- NOTE | 2023-08-10 10:45 | Sleep Patient Instructions ---
Sleep Center Visit Summary - Patient Visit Information Reason for Visit: 6 month followup for PAP therapy - Patient Instructions Additional Instructions: You were here for follow up of CPAP therapy. You will be continued on CPAP therapy with pressure at 7-10 cmH2O. You should follow up with sleep care in 12 months. You may contact us sooner for any questions or concerns. - Clinic Information Contact: [facility] [address] [place] [address] [email or web address] T: [phone]
--- NOTE | 2023-08-10 10:49 | SLEEP CARE CONSULTATION ---
Information from patient questionnaire entered by Uma Condon. I have reviewed and concur with the information entered by Uma Condon. This document represents the service I personally performed and the decisions made by , Vika Schwab ARNP. History of Present Illness Service Date and Time: 08/10/2023 1023 Previous diagnosis: Mild, Obstructive Sleep Apnea-Hypopnea Syndrome AHI: 11.2 (in 2021) Reason for follow up: six month Equipment type: CPAP (RESMED Airsense 11, s/u 08/2022) Equipment obtained from: [employer] (getting supplies) Mask style: Nasal Backup mask available: Yes Last cushion change: less than month ago Prior sleep studies: No Type of Sleep Study: Home sleep study (COMPLETED 08/18/22) HPI additional information: MIRELA LOPEZ was diagnosed to have mild, AHI 11.2, obstructive sleep apnea- hypopnea syndrome and returned today for CPAP therapy six month follow-up. Sleep Study - Results Type of Sleep Study: Home sleep study (COMPLETED 08/18/22) Prior sleep studies: No CPAP Compliance Data - Data Reviewed with Patient Average duration of nightly device use: 6 HRS 20 MINS Compliance rate %: 68 (02/07/23-08/05/23; 129/180 days used) Current pressure setting (cmH2O): 7-10 Average residual AHI: 0.7 Central apnea: 0.2 Obstructive apnea: 0.1 Average large leak: 0.6 L/min Subjective Missed days of use due to: reports: illness (stuffy nose), travel, other (fall asleep without mask or go to be lated) Patient concerns: reports: dry mouth, nose, throat (wears Invisiline). denies: aerophagia, mask discomfort, air blowing in eyes, mask leak noise, condensation in mask/hose, nasal congestion, epistaxis Observed to snore while using device: No Current pressure setting perceived as: comfortable On therapy, patient: reports: sleeping better, awakening more refreshed, being more awake and alert during the day, more rested overall. 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 Obstructive Sleep Apnea-Hypopnea Syndrome, mild, with good treatment compliance and good apnea control. On CPAP therapy, the patient has better sleep quality and is more rested overall. Patient states she sometimes does not sleep with the CPAP and can sleep well but she always did sleep well and feels rested. It was just the snoring and gasping in her sleep that bothered her that brought her in for sleep apnea diagnosis. Patient has significant improvement of their sleep apnea and is satisfied with current CPAP therapy. Patient denies problems with oral dryness, nasal congestion, epistaxis, skin irritation or aerophagia. Patient's apnea severity and rationale for treatment to reduce apnea, improve sleep quality and reduce cardiovascular and cerebrovascular events was reviewed. I also reviewed the benefit of consistent device use of CPAP for asthma. * Continue auto CPAP pressure at 7-10 cmH2O * Notify me if snoring with mask or feeling that the pressure is too much or too little * Maintain a healthy weight * Call this office if any problems using CPAP * Return for follow up in 1 year, or sooner if concerns arise Counseling Topics: Spare mask, Weight control Follow up with Sleep Care in: 1 year Visit Type: In Office Time Spent with Patient (minutes): 20 Provider Statement: I spent 100% of the Face to Face Visit with the patient with greater than 50% spent counseling the patient and coordination of care.
[2023-08-10 10:51] VITALS: BP 116/72; O2SAT 97
== END 2023-08-10 10:24 | disposition home or self-care (01) ==
LOC: SC 10:23
PROVIDERS: ATTEND Nurse Practitioner Family
DX: G47.33 Obstructive sleep apnea (adult) (pediatric) (principal)
CPT/HCPCS: 99213; G0463; 99212